=== PATIENT | male | born 1960 | race Caucasian/White ===

== ENCOUNTER 2021-05-08 10:51 | Emergency (ER) | payer SELFPAY ==
[~2021-05-08] VITALS: Ht 185.4 cm; Wt 78.9 kg
[~2021-05-08 10:51] MED LIST: LISI20TA28 PO; TRIA25CA PO
[2021-05-08] MEDS ORDERED: cloNIDine HCL 0.1 MG TAB PO ONE (17:00)
[2021-05-08] MEDS ORDERED: amLODIPine BESYLATE 5 MG TAB PO ONE (18:30)
[2021-05-08 19:02] VITALS: BP 170/107
== END 2021-05-08 19:04 | disposition home or self-care (01) ==
LOC: ER 10:51
DX: K40.90 Unilateral inguinal hernia, without obstruction or gangrene, not specified as recurrent (principal); I16.0 Hypertensive urgency; E78.5 Hyperlipidemia, unspecified; Z79.899 Other long term (current) drug therapy
CPT/HCPCS: 74176; 93005

== ENCOUNTER 2021-12-18 11:00 | Outpatient (CLI) | payer OTHER ==
[~2021-12-18] VITALS: Ht 185.4 cm; Wt 79.4 kg
[2021-12-18 12:28] LABS: INR 0.97 (0.9-1.15); Partial Thromboplastin Time 25.9 sec (23.6-33.0)
[2021-12-18] MEDS ORDERED: AML5T PO (12:39)
[2021-12-18] MEDS ORDERED: LISI40TA11 PO (12:39)
[2021-12-18 12:41] LABS: Urine Bacteria NONE SEEN /hpf (None Seen); Urine Blood Negative /uL (Negative); Urine Specific Gravity 1.018 (1.001-1.035); Urine WBC 1 /hpf (0 - 3)
[2021-12-18 13:15] LABS: Basophils # (auto) 0.1 10 ^3/uL (0-0.2); Basophils % (auto) 2.2 % (0.0-2.0); Eosinophils # (auto) 0.4 10 ^3/uL (0-0.8); Eosinophils % (auto) 5.5 % (0.0-7.0); Hematocrit 35.3 % (41.0-53.0); Hemoglobin 12.2 g/dL (13.5-17.5); Lymphocytes # (auto) 2.2 10 ^3/uL (0.4-5.4); Lymphocytes % (auto) 33.9 % (10.0-50.0); Mean Corpuscular Hemoglobin 33.2 pg (28.0-32.0); Mean Corpuscular Hgb Conc. 34.6 g/dL (32.0-36.0); Monocytes # (auto) 0.7 10 ^3/uL (0-1.3); Monocytes % (auto) 10.1 % (0.0-12.0); Neutrophils # (auto) 3.1 10 ^3/uL (1.6-8.6); Neutrophils % (auto) 48.3 % (37.0-80.0); Nucleated Red Blood Cells % 0.1 %; Red Blood Cells 3.67 10^6/uL (4.5-5.90); Red Cell Distribution Width 13.1 % (11.8-14.3); White Blood Cell 6.5 10^3/uL (4.4-10.8)
[2021-12-18 13:19] LABS: Albumin 3.2 g/dL (3.4-5.0); Potassium 4.1 mmol/L (3.5-5.1)
[2021-12-18 13:21] LABS: BUN/Creatinine Ratio 13.2; Calcium 8.7 mg/dL (8.5-10.1)
[2021-12-18 13:24] LABS: Bilirubin, Total 0.2 mg/dL (0.2-1.0); Total Protein 6.4 g/dL (6.4-8.2)
== END 2021-12-18 15:15 | disposition home or self-care (01) ==
LOC: LAB 11:00 → EDSTATUS 12-20 07:00
PROVIDERS: ATTEND Surgery
DX: Z01.812 Encounter for preprocedural laboratory examination (principal); C44.90 Unspecified malignant neoplasm of skin, unspecified; Z20.822 Contact with and (suspected) exposure to COVID-19; K40.90 Unilateral inguinal hernia, without obstruction or gangrene, not specified as recurrent; I10 Essential (primary) hypertension; Z68.24 Body mass index [BMI] 24.0-24.9, adult
CPT/HCPCS: 36415; 80053; 81001; 85025; 85610; 85730; 86850; 86900; 86901; U0003

== ENCOUNTER → 2022-05-16 | Day surgery (SDC) | payer OTHER ==
[2022-05-14 14:37] LABS: Basophils # (auto) 0 10 ^3/uL (0-0.2); Basophils % (auto) 0.3 % (0.0-2.0); Eosinophils # (auto) 0.5 10 ^3/uL (0-0.8); Eosinophils % (auto) 7.2 % (0.0-7.0); Hematocrit 36.3 % (41.0-53.0); Hemoglobin 11.9 g/dL (13.5-17.5); Lymphocytes # (auto) 2.4 10 ^3/uL (0.4-5.4); Lymphocytes % (auto) 31.9 % (10.0-50.0); Mean Corpuscular Hgb Conc. 32.7 g/dL (32.0-36.0); Mean Corpuscular Volume 94.7 fL (80.0-100.0); Monocytes # (auto) 0.7 10 ^3/uL (0-1.3); Neutrophils # (auto) 3.8 10 ^3/uL (1.6-8.6); Neutrophils % (auto) 50.6 % (37.0-80.0); Red Blood Cells 3.84 10^6/uL (4.5-5.90); Red Cell Distribution Width 13.1 % (11.8-14.3); White Blood Cell 7.4 10^3/uL (4.4-10.8)
[2022-05-14 14:59] LABS: INR 0.97 (0.9-1.15); Partial Thromboplastin Time 27.6 sec (24.6-33.4)
[2022-05-14 15:06] LABS: Urine Bacteria NONE SEEN /hpf (None Seen); Urine Blood Negative /uL (Negative); Urine Mucus FEW (None Seen); Urine Specific Gravity 1.029 (1.001-1.035); Urine WBC 23 /hpf (0 - 3)
[2022-05-14 15:23] LABS: Albumin 3.1 g/dL (3.4-5.0); Calcium 8.5 mg/dL (8.5-10.1); Potassium 3.7 mmol/L (3.5-5.1)
[2022-05-14 15:26] LABS: BUN/Creatinine Ratio 9.8; Bilirubin, Total 0.2 mg/dL (0.2-1.0); Total Protein 6.2 g/dL (6.4-8.2)
[~2022-05-16] VITALS: Ht 185.4 cm; Wt 79.4 kg
[~2022-05-16] MED LIST changes: +AML5T PO; -LISI20TA28 PO; +LISI40TA11 PO; -TRIA25CA PO; +ceFAZolin 1GM/50ML 50 ML IV ONE
[2022-05-16 10:40] VITALS: BP 203/131
== END | disposition home or self-care (01) ==
LOC: SUR 07:56
PROVIDERS: ATTEND Surgery
DX: K40.90 Unilateral inguinal hernia, without obstruction or gangrene, not specified as recurrent (principal); Z53.8 Procedure and treatment not carried out for other reasons; F17.200 Nicotine dependence, unspecified, uncomplicated; Z20.822 Contact with and (suspected) exposure to COVID-19
CPT/HCPCS: 36415; 80053; 81001; 85025; 85610; 85730; 86850; 86900; 86901; J0690; U0003; 45380